=== PATIENT | female | born 1990 | race Caucasian/White ===

== ENCOUNTER 2019-05-25 21:58 | Emergency (ER) | payer OTHER, SELFPAY ==
[2019-05-25] MEDS ORDERED: MORPHINE 4 MG/ML SYR ONE (23:57)
[2019-05-25] MEDS ORDERED: ONDANSETRON 4 MG/2 ML VIAL ONE (23:57)
[2019-05-26] MEDS ORDERED: NA CHLORIDE 0.9% 1,000 ML IV SCH
[2019-05-26 00:57] LABS: Urine Bacteria >50 /HPF (<20); Urine Culture Reflex Order REFLEXED; Urine Mucus 1+ /HPF (NONE SEEN)
[2019-05-26 01:29] LABS: Absolute Lymphocytes (CBC) 2.3 K/uL (0.7-4.9); Basophils % 0.8 % (0-1.3); Hematocrit 39.5 % (36.0-45.0); Lymphocytes % 37.4 % (15.3-44.8); MPV 7.5 fL (7.6-11.3); RBC Red Blood Cell Count 4.38 M/uL (3.86-4.86)
[2019-05-26 01:40] LABS: ALT/SGPT 79 U/L (12-78); AST/SGOT 42 U/L (15-37); Albumin 3.4 g/dL (3.4-5.0); Alkaline Phosphatase 47 U/L (45-117); BUN Blood Urea Nitrogen 7 mg/dL (7-18); Bicarbonate 28 mmol/L (21-32); Bilirubin Direct < 0.1 mg/dL (0-0.2); Bilirubin Total 0.2 mg/dL (0.2-1.0); Glucose Level 91 mg/dL (74-106); Lipase 69 U/L (73-393); Potassium 3.7 mmol/L (3.5-5.1); Protein, Total 7.2 g/dL (6.4-8.2); Sodium Level 141 mmol/L (136-145)
[2019-05-26] MEDS ORDERED: FENTANYL CITR 100 MCG/2 ML ONE (01:52)
[2019-05-26 02:26] LABS: Urine Blood 2+ (NEG); Urine Glucose NEGATIVE (NEG); Urine Protein NEGATIVE (NEG); Urine Specific Gravity 1.025 (1.005-1.030)
[2019-05-26] MEDS ORDERED: ONDANSETRON 4 MG/2 ML VIAL ONE (03:10)
[2019-05-26] MEDS ORDERED: CEFTRIAXONE/SWI 1gm 1 GM/10 ML SYR ONE (03:10)
--- NOTE | 2019-05-26 04:06 | EDPHYS ---
Physician Documentation [facility] Name: Leslie Disla Age: 28 yrs Sex: Female : 1990 Arrival Date: 05/25/2019 Time: 22:01 Bed 8 Private MD: ED Physician Sebastian Cunha HPI: 05/25 01:47 This 28 yrs old Female presents to ER via Ambulatory with complaints of kb Fever, Nausea/Vomiting, Flank Pain. 01:47 The patient presents with abdominal pain right lower quadrant. Onset: The kb symptoms/episode began/occurred 3 day(s) ago. The symptoms do not radiate. Associated signs and symptoms: Pertinent positives: nausea, vomiting, and diarrhea, fever, Pertinent negatives: anorexia, blood in stools, chest pain, constipation, dysuria, headache, hematuria, palpitations, shortness of breath, vaginal discharge, vomiting blood. The symptoms are described as constant. Modifying factors: The symptoms are alleviated by nothing, the symptoms are aggravated by nothing. Severity of pain: At its worst the pain was moderate in the emergency department the pain is unchanged. The patient has not experienced similar symptoms in the past. The patient has not recently seen a physician. Pt reports RLQ pain, n/v/d and low grade fever since Tuesday. Was seen at [facility] on Tuesday and kept for obs, but released without a diagnosis and still having same pain. 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 - Social history:: Smoking status: Patient denies any tobacco usage or history of. ROS: 05/25 01:44 Constitutional: Negative for fever, chills, and weight loss, ENT: Negative for injury, kb pain, and discharge, Neck: Negative for injury, pain, and swelling, Cardiovascular: Negative for chest pain, palpitations, and edema, Respiratory: Negative for shortness of breath, cough, wheezing, and pleuritic chest pain, Back: Negative for injury and pain, MS/Extremity: Negative for injury and deformity, Skin: Negative for injury, rash, and discoloration, Neuro: Negative for headache, weakness, numbness, tingling, and seizure. Abdomen/GI: Positive for abdominal pain, nausea, vomiting, and diarrhea. Exam: 01:43 Constitutional: This is a well developed, well nourished patient who is awake, alert, kb and in no acute distress. Head/Face: Normocephalic, atraumatic. Neck: Trachea midline, no thyromegaly or masses palpated, and no cervical lymphadenopathy. Supple, full range of motion without nuchal rigidity, or vertebral point tenderness. No Meningismus. Chest/axilla: Normal chest wall appearance and motion. Nontender with no deformity. No lesions are appreciated. Cardiovascular: Regular rate and rhythm with a normal S1 and S2. No gallops, murmurs, or rubs. Normal PMI, no JVD. No pulse deficits. Respiratory: Lungs have equal breath sounds bilaterally, clear to auscultation and percussion. No rales, rhonchi or wheezes noted. No increased work of breathing, no retractions or nasal flaring. Back: No spinal tenderness. No costovertebral tenderness. Full range of motion. Skin: Warm, dry with normal turgor. Normal color with no rashes, no lesions, and no evidence of cellulitis. MS/ Extremity: Pulses equal, no cyanosis. Neurovascular intact. Full, normal range of motion. Neuro: Awake and alert, GCS 15, oriented to person, place, time, and situation. Cranial nerves II-XII grossly intact. Motor strength 5/5 in all extremities. Sensory grossly intact. Cerebellar exam normal. Normal gait. 01:43 Abdomen/GI: Inspection: obese Bowel sounds: normal, Palpation: soft, in all quadrants, moderate abdominal tenderness, in the right lower quadrant. Vital Signs: 05/24 22:09 BP 107 / 63; Pulse 104; Resp 20; Temp 98.2; Pulse Ox 96% on R/A; Weight 117.93 kg (R); aj1 Height 5 ft. 2 in. (157.48 cm) (R); Pain 10/10; 05/25 01:40 BP 125 / 88; Pulse 85; Resp 18; Pulse Ox 95% on R/A; ea 04:17 BP 122 / 98; Pulse 80; Resp 18; Pulse Ox 94% ; ah 05/24 22:09 Body Mass Index 47.55 (117.93 kg, 157.48 cm) aj1 MDM: 05/24 23:21 Patient medically screened. kb 05/25 01:43 Data reviewed: vital signs, nurses notes. Data interpreted: Pulse oximetry: on room air kb is 95 %. Interpretation: normal. 03:20 Transition of care: After a detail discussion of the patient's case, care is kb transferred to Sebastian Cunha MD. 05/24 22:08 Order name: Urine Microscopic Only; Complete Time: 00:59 kb 05/24 23:28 Order name: Hepatic Function; Complete Time: 01:42 kb 05/24 23:28 Order name: Basic Metabolic Panel; Complete Time: 01:42 kb 05/24 23:28 Order name: CBC with Diff; Complete Time: 01:42 kb 05/24 23:28 Order name: Lipase; Complete Time: 01:42 kb 05/25 00:59 Order name: Urine Culture EDCA 05/24 23:35 Order name: CT Abd/Pelvis - IV Contrast Only kb 05/25 01:41 Order name: Urine Dipstick--Ancillary (enter results); Complete Time: 02:27 sp 05/25 01:41 Order name: Urine --Ancillary (enter results); Complete Time: 02:27 sp 05/24 22:08 Order name: Urine Test (obtain specimen); Complete Time: 23:46 kb 05/24 22:08 Order name: Urine Dipstick-Ancillary (obtain specimen); Complete Time: 23:45 kb 05/24 23:28 Order name: IV Saline Lock; Complete Time: 00:29 kb 05/24 23:28 Order name: Labs collected and sent; Complete Time: 00:29 kb Administered Medications: 00:27 Drug: Zofran (Ondansetron) 4 mg Route: IVP; Site: right forearm; ea 02:27 Follow up: Response: No adverse reaction ea 00:29 Drug: morphine 4 mg {Note: RASS 1.} Route: IVP; Site: right forearm; ea 01:00 Follow up: Response: No adverse reaction; Pain is decreased; RASS: Alert and Calm (0) ea 00:29 Drug: NS 0.9% 1000 ml Route: IV; Rate: 1000 ml; Site: right forearm; ea 00:30 Drug: NS 0.9% 1000 ml Route: IV; Rate: 1000 ml; Site: right forearm; ea 02:27 Follow up: Response: No adverse reaction; IV Intake: 1000ml ea 02:19 Drug: fentaNYL (PF) 25 mcg Route: IVP; Site: right forearm; ea 03:19 Follow up: Response: No adverse reaction ah 03:08 Drug: Rocephin 1 grams Route: IV; Rate: calculated rate; Site: right antecubital; rv 03:15 Follow up: IV Status: Completed infusion rv 04:27 Follow up: IV Intake: 10ml ah 03:08 Drug: Zofran (Ondansetron) 4 mg Route: IVP; Site: right antecubital; rv 04:19 Follow up: Response: No adverse reaction; Nausea is decreased 04:14 Drug: Bentyl 20 mg Route: PO; ah 04:26 Follow up: Response: Medication administered at discharge. 04:15 Drug: TORadol 30 mg Route: IVP; Site: right antecubital; ah 04:26 Follow up: Response: Medication administered at discharge. Disposition: 06:16 Co-signature as Attending Physician, Sebastian Cunha MD I agree with the assessment and 4 plan of care. Disposition: 05/26/19 04:05 Discharged to Home. Impression: Abdominal tenderness, Nausea with vomiting, unspecified, Urinary tract infection, site not specified. - Condition is Stable. - Discharge Instructions: Nausea and Vomiting, Adult, Urinary Tract Infection, Adult, Abdominal Pain, Adult, [id number]. - Prescriptions for Bentyl 20 mg Oral Tablet - take 1 tablet by ORAL route every 6 hours As needed; 20 tablet. Protonix 40 mg Oral Tablet - take 1 tablet by ORAL route once daily; 30 tablet. Zofran 4 mg Oral Tablet - take 1 tablet by ORAL route every 12 hours As needed; 6 tablet. Macrobid 100 mg Oral Capsule - take 1 capsule by ORAL route every 12 hours for 10 days; 20 capsule. - Medication Reconciliation Form, Thank You Letter, Antibiotic Education, Prescription Opioid Use form. - Follow up: Private Physician; When: Upon discharge from the Emergency Department; Reason: Recheck today's complaints, Continuance of care, Re-evaluation by your physician. Follow up: Mark Saleh MD; When: Upon discharge from the Emergency Department; Reason: Recheck today's complaints, Continuance of care, Re-evaluation by your physician. Follow up: Spenser Waggoner MD; When: Upon discharge from the Emergency Department; Reason: Recheck today's complaints, Continuance of care, Re-evaluation by your physician. Follow up: Vasquez Blank MD; When: Upon discharge from the Emergency Department; Reason: Recheck today's complaints, Continuance of care, Re-evaluation by your physician. - Problem is an ongoing problem. - Symptoms have improved. Signatures: Dispatcher [employer] EDMS Purvi Jaime, BATON TWIRLER-C BATON TWIRLER-Ckb Mary Finnegan RN RN aj1 Nitza Nj RN Sebastian Bernard ea, MD MD tw4 Kee Rashid RN RN rv Harris, Amy, RN RN Corrections: (The following items were deleted from the chart) 04:23 04:05 05/26/2019 04:05 Discharged to Home. Impression: Abdominal tenderness; Nausea tw4 with vomiting, unspecified. Condition is Stable. Forms are Medication Reconciliation Form, Thank You Letter, Antibiotic Education, Prescription Opioid Use. Follow up: Private Physician; When: Upon discharge from the Emergency Department; Reason: Recheck today's complaints, Continuance of care, Re-evaluation by your physician. Follow up: Mark Saleh; When: Upon discharge from the Emergency Department; Reason: Recheck today's complaints, Continuance of care, Re-evaluation by your physician. Follow up: Spenser Waggoner; When: Upon discharge from the Emergency Department; Reason: Recheck today's complaints, Continuance of care, Re-evaluation by your physician. Follow up: Vasquez Blank; When: Upon discharge from the Emergency Department; Reason: Recheck today's complaints, Continuance of care, Re-evaluation by your physician. Problem is an ongoing problem. Symptoms have improved. tw4 04:27 04:23 05/26/2019 04:05 Discharged to Home. Impression: Abdominal tenderness; Nausea ah with vomiting, unspecified; Urinary tract infection, site not specified. Condition is Stable. Discharge Instructions: Nausea and Vomiting, Adult, Abdominal Pain, Adult, [id number]. Prescriptions for Bentyl 20 mg Oral Tablet - take 1 tablet by ORAL route every 6 hours As needed; 20 tablet, Protonix 40 mg Oral Tablet - take 1 tablet by ORAL route once daily; 30 tablet, Zofran 4 mg Oral Tablet - take 1 tablet by ORAL route every 12 hours As needed; 6 tablet. and Forms are Medication Reconciliation Form, Thank You Letter, Antibiotic Education, Prescription Opioid Use. Follow up: Private Physician; When: Upon discharge from the Emergency Department; Reason: Recheck today's complaints, Continuance of care, Re-evaluation by your physician. Follow up: Mark Saleh; When: Upon discharge from the Emergency Department; Reason: Recheck today's complaints, Continuance of care, Re-evaluation by your physician. Follow up: Spenser Waggoner; When: Upon discharge from the Emergency Department; Reason: Recheck today's complaints, Continuance of care, Re-evaluation by your physician. Follow up: Vasquez Blank; When: Upon discharge from the Emergency Department; Reason: Recheck today's complaints, Continuance of care, Re-evaluation by your physician. Problem is an ongoing problem. Symptoms have improved. tw4
--- NOTE | 2019-05-26 04:06 | ER ---
Nurse's Notes [facility] Name: Leslie Disla Age: 28 yrs Sex: Female : 1990 Arrival Date: 05/25/2019 Time: 22:01 Bed 8 Private MD: Diagnosis: Abdominal tenderness;Nausea with vomiting, unspecified;Urinary tract infection, site not specified Presentation: 05/24 22:06 Chief complaint: Patient states: right sided abdominal pain. states that she was seen aj1 in the ER at [facility] Tuesday, she had a CT, they kept her over-night for observation, but didn't find anything wrong, but she is still hurting and she has been vomiting and she was running fever earlier today. Coronavirus screen: The patient has NOT traveled to a country currently being monitored by the CDC within the last 14 days. Ebola Screen: Patient denies travel to an Ebola-affected area in the 21 days before illness onset. Initial Sepsis Screen: Does the patient meet any 2 criteria? HR > 90 bpm. No. Patient's initial sepsis screen is negative. Does the patient have a suspected source of infection? Yes: Acute abdominal pain. Risk Assessment: Do you want to hurt yourself or someone else? Patient reports no desire to harm self or others. 22:06 Method Of Arrival: Ambulatory aj1 22:06 Acuity: INDERJIT 3 aj1 Triage Assessment: 22:09 General: Appears in no apparent distress. uncomfortable, Behavior is calm, cooperative, aj1 appropriate for age. Pain: Complains of pain in abdomen. Neuro: Level of Consciousness is awake, alert, obeys commands. Cardiovascular: Patient's skin is warm and dry. Respiratory: Airway is patent Respiratory effort is even, unlabored, Respiratory pattern is regular, symmetrical. GI: Reports lower abdominal pain, nausea, vomiting. 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 - Social history:: Smoking status: Patient denies any tobacco usage or history of. Screenin/14 01:04 Abuse screen: Denies threats or abuse. Nutritional screening: No deficits noted. ea Tuberculosis screening: No symptoms or risk factors identified. Fall Risk None identified. Assessment: 01:04 General: Appears uncomfortable, Behavior is calm, cooperative, appropriate for age. ea Pain: Complains of pain in abdomen. Neuro: Level of Consciousness is awake, alert, obeys commands, Oriented to person, place, time. Respiratory: Airway is patent Respiratory effort is even, unlabored, Respiratory pattern is regular, symmetrical. GI: Abdomen is non-distended. Derm: Skin is pink, warm \T\ dry. 02:26 Reassessment: Patient and/or family updated on plan of care and expected duration. Pain ea level reassessed. Patient is alert, oriented x 3, equal unlabored respirations, skin warm/dry/pink. Returned from CT. 04:15 Reassessment: Patient appears in no apparent distress at this time. Patient is alert, ah oriented x 3, equal unlabored respirations, skin warm/dry/pink. Pt called nurse to the room and states that she needs to use the restroom and she is having more pain. Notified MD and received orders for toradol and bentyl. Medications given and Pt tolerated well. Vital Signs: 05/24 22:09 BP 107 / 63; Pulse 104; Resp 20; Temp 98.2; Pulse Ox 96% on R/A; Weight 117.93 kg (R); aj1 Height 5 ft. 2 in. (157.48 cm) (R); Pain 10/10; 05/25 01:40 BP 125 / 88; Pulse 85; Resp 18; Pulse Ox 95% on R/A; ea 04:17 BP 122 / 98; Pulse 80; Resp 18; Pulse Ox 94% ; ah 05/24 22:09 Body Mass Index 47.55 (117.93 kg, 157.48 cm) aj1 ED Course: 05/24 22:01 Patient arrived in ED. es 22:08 Purvi [facility]ime [facility]-C [facility] kb 22:08 Sebastian Cunha MD is Attending Physician. kb 22:08 Triage completed. aj1 22:09 Arm band placed on Patient placed in waiting room, Patient notified of wait time. aj1 23:31 Kee Rashid, RN is Primary Nurse. rv 05/25 00:06 Radiology exam delayed due to lab results not completed at this time. (BUN/Creatinine) kw1 test not completed at this time. 00:27 Inserted saline lock: 22 gauge in right forearm, using aseptic technique. ds4 00:29 Urine Microscopic Only Sent. ds4 00:42 Radiology exam delayed due to lab results not completed at this time. (BUN/Creatinine) kw1 test not completed at this time. 00:59 Radiology exam delayed due to lab results not completed at this time. (BUN/Creatinine) kw1 test not completed at this time. 01:05 Patient has correct armband on for positive identification. Bed in low position. Call ea light in reach. 01:28 Radiology exam delayed due to lab results not completed at this time. (BUN/Creatinine) kw1 test not completed at this time. 03:11 CT Abd/Pelvis - IV Contrast Only In Process Unspecified. EDMS 04:05 Mark Saleh MD is Referral Physician. tw4 04:05 Spenser Waggoner MD is Referral Physician. tw4 04:05 Vasquez Blank MD is Referral Physician. tw4 04:20 No provider procedures requiring assistance completed. IV discontinued, intact, ah bleeding controlled, No redness/swelling at site. Pressure dressing applied. Administered Medications: 00:27 Drug: Zofran (Ondansetron) 4 mg Route: IVP; Site: right forearm; ea 02:27 Follow up: Response: No adverse reaction ea 00:29 Drug: morphine 4 mg {Note: RASS 1.} Route: IVP; Site: right forearm; ea 01:00 Follow up: Response: No adverse reaction; Pain is decreased; RASS: Alert and Calm (0) ea 00:29 Drug: NS 0.9% 1000 ml Route: IV; Rate: 1000 ml; Site: right forearm; ea 00:30 Drug: NS 0.9% 1000 ml Route: IV; Rate: 1000 ml; Site: right forearm; ea 02:27 Follow up: Response: No adverse reaction; IV Intake: 1000ml ea 02:19 Drug: fentaNYL (PF) 25 mcg Route: IVP; Site: right forearm; ea 03:19 Follow up: Response: No adverse reaction 03:08 Drug: Rocephin 1 grams Route: IV; Rate: calculated rate; Site: right antecubital; rv 03:15 Follow up: IV Status: Completed infusion rv 04:27 Follow up: IV Intake: 10ml 03:08 Drug: Zofran (Ondansetron) 4 mg Route: IVP; Site: right antecubital; rv 04:19 Follow up: Response: No adverse reaction; Nausea is decreased ah 04:14 Drug: Bentyl 20 mg Route: PO; ah 04:26 Follow up: Response: Medication administered at discharge. ah 04:15 Drug: TORadol 30 mg Route: IVP; Site: right antecubital; ah 04:26 Follow up: Response: Medication administered at discharge. Intake: 02:27 IV: 1000ml; Total: 1000ml. ea 04:27 IV: 10ml; Total: 1010ml. Outcome: 04:05 Discharge ordered by . tw4 04:25 Discharged to home ambulatory. 04:25 Condition: good 04:25 Discharge instructions given to patient, Instructed on discharge instructions, follow up and referral plans. medication usage, Demonstrated understanding of instructions, follow-up care, medications, Prescriptions given X 3. 04:27 Patient left the ED. Signatures: Dispatcher [employer] Purvi Mcmahon, UNIT LEADER-C UNIT LEADER-Ckb Mary Finnegan RN RN Courtney Finch Donovan ds4 Nitza Nj RN RN ea Wilhelm, Kimberly kw1 Sebastian Cunha MD MD tw4 Kee Rashid RN RN rv Harris, Amy, RN RN
[2019-05-26] MEDS ORDERED: DICYCLOMINE HCL 10 MG CAP ONE (04:10)
[2019-05-26] MEDS ORDERED: KETOROLAC 30 MG/ML INJ ONE (04:11)
[2019-05-26 05:04] VITALS: TEMP 98.2
[2019-05-26 05:07] VITALS: BP 122/98; O2SAT 94
--- NOTE | 2019-05-28 11:06 | RAD REPORT ---
EXAM DESCRIPTION: CT - Abdomen Pelvis W Contrast - 05/26/2019 5:29 am CLINICAL HISTORY: The patient is 28 years old and is Female; ABD PAIN TECHNIQUE: Axial computed tomography images of the abdomen and pelvis with intravenous contrast. S agittal and coronal reformatted images were created and reviewed. This CT exam was performed using one or more of the following dose reduction techniques: automated exposure control, adjustment of t he mA and/or kV according to patient size, and/or use of iterative reconstruction technique. COMPARISON: No relevant prior studies available. FINDINGS: LUNG BASES: Unremarkable. No mass. No consolidation. ABDOMEN: LIVER: There is a diffuse decrease in hepatic parenchymal density, consistent with fatty infiltr ation. GALLBLADDER AND BILE DUCTS: No calcified stones. No ductal dilation. PANCREAS: No ductal dilation. No mass. SPLEEN: Unremarkable. ADRENALS: Unremarkable. No mass. KIDNEYS AND URETERS: Left intrarenal calcification is present. The kidneys enhance symmetrically . No obstructing renal or ureteral calculus is seen. There is no hydronephrosis or hydroureter of eit her kidney. STOMACH AND BOWEL: The stomach is decompressed. The small bowel is normal in caliber. Stool is p resent throughout the colon. There is no mucosal thickening or evidence of bowel obstruction. PELVIS: APPENDIX: The appendix is normal in caliber without surrounding inflammation. BLADDER: Unremarkable. No mass. REPRODUCTIVE: Unremarkable as visualized. ABDOMEN and PELVIS: INTRAPERITONEAL SPACE: Unremarkable. No free air. No significant fluid collection. BONES/JOINTS: No acute fracture. SOFT TISSUES: The soft tissues are normal. VASCULATURE: Unremarkable. No abdominal aortic aneurysm. LYMPH NODES: Unremarkable. No enlarged lymph nodes. IMPRESSION: No acute findings on this contrasted CT of the abdomen and pelvis to explain the patient 's symptoms. Electronically signed by: Flor Rust MD 05/26/2019 3:25 AM CDT Due to temporary technical issues with the PACS/Fluency reporting system, reports are being signed by the in house radiologist as a courtesy to ensure prompt reporting. The interpreting radiologist is f ully responsible for the content of the report.
== END 2019-05-26 04:27 | disposition home or self-care (01) ==
LOC: ER 21:58
DX: N39.0 Urinary tract infection, site not specified (principal); R11.2 Nausea with vomiting, unspecified
CPT/HCPCS: 87088; 85025; 87086; 36415; 81025; 81003; 81015; 74177; 96375; 96374; 99284; Q9967; J3010; J0696; J7030; J2405 ×2

== ENCOUNTER 2022-04-04 06:53 | Emergency (ER) | payer OTHER ==
--- OUTSIDE RECORDS SUMMARY | 2022-04-04 06:56 | XMS REPORT | Continuity of Care Document ---
:1990 Author Organization [facility] t Address [address] [place] [address] Dr. [address]. [address] [place] [address] Care Team Providers Name Role Phone Pcp, Patient Does Not Have A Primary Care Physician [id number] Paco Kaiser Attending Clinician PACO BREAUX Attending Clinician Unavailable Doctor Unassigned, [place] Attending Clinician Unavailable NETO BARBOSA Attending Clinician Unavailable Therapy, [facility] Cov[facility] Infusion Attending Clinician Unavailable Neto Barbosa MD Attending Clinician Provider, [facility] Attending Clinician Unavailable Natalia Martinez Attending Clinician Lab, [facility] Fam Pob I Attending Clinician Unavailable Park Giraldo Attending Clinician PARK PIRES Attending Clinician Unavailable DR Laurie COTTRELL Attending Clinician Unavailable DR Laurie COTTRELL Admitting Clinician Unavailable Payers Payer Name Policy Type Policy Number Effective Date Expiration Date [facility] [id number] 2019 2020 PPO/POS 00:00:00 00:00:00 Problems Condition Condition Condition Status Onset Resolution Last Treating Co mments Source Name Details Category Date Date Treatment Clinician Date No known No known Disease Unive rs active active ity of problems problems [facility] Other Other Problem Active 2018-06-24 Memor ia endometrio endometrio 02:45:33 l sis sis Active Sb n Problem 06/24/2018 [facility] Polycystic Problem Active 2018-06-24 M emoria ovarian Polycystic 02:45:33 l syndrome ovarian South syndrome Active Problem 06/24/2018 [facility] Allergies, Adverse Reactions, Alerts Allergy Allergy Status Severity Reaction(s) Onset Inactive Treating Comm ents Source Name Type Date Date Clinician Amoxicil Propensi Active Nausea Univer s elli[place] ty to and/or 09-01 ity of adverse Vomiting 00:00: [place] reaction 00 Medical s Branch AMOXICIL DRUG Active High N/V Univers ELLIOTT INGREDI 09-01 ity of 00:00: [place] 00 Medical Branch NO KNOWN Drug Active Univers ALLERGIE Class ity of [facility] Social History Social Habit Start Date Stop Date Quantity Comments Source Exposure to 2021-07-25 2021-08-04 Not sure [facility] SARS-CoV-2 (event) 00:00:00 09:05:00 Medica l Branch Tobacco use and 2021-08-04 2021-08-04 Never used [facility] exposure 00:00:00 00:00:00 [facility] Sex Assigned At [birth year] [facility] 00:00:00 00:00:00 [facility] Smoking Status Start Date Stop Date Source Never smoker [facility] Unknown if ever smoked [facility] Medications Ordered Filled Start Stop Current Ordering Indication Dosage Frequency Signature Comments Components Source Medication Medication Date Date Medication? Clinician (SIG) Name Name ondansetron 2021- No [id number] 4mg Univers (ZOFRAN-ODT 08-04 ity of ) 15:30: 14:29 [place] disintegrat 00 :00 Medical ing tablet Branch 4 mg ondansetron 2021- No [id number] 4mg 4 mg, Univers (ZOFRAN-ODT 08-04 Oral, ity of ) 15:30: 14:29 ONCE, 1 [place] disintegrat 00 :00 dose, On Medi jaquelin ing tablet Tue Branch 4 mg 08/04/21 at 1030, Routine ketorolac 2021- No [id number] 30mg 30 mg, Univers (TORADOL) 5-24 05-24 Intramuscu ity of injection 15:30: 14:29 lar, ONCE, [place] 30 mg 00 :00 1 dose, On Medical On License Of [facility] Branch 08/04/21 at 1030, Routine ketorolac 2021- No [id number] 30mg Un otis (TORADOL) 08-04 ity of injection 15:30: 14:29 [place] 30 mg 00 :00 Medical Branch tamsulosin 2021- No [id number] .4mg Take 1 Univers (FLOMAX) 08-04 capsule by ity of 0.4 mg 24 00:00: 04:59 mouth [place] hr capsule 00 :00 daily for Medi jaquelin 7 days. Branch tamsulosin 2021- No [id number] .4mg Take 1 Univers (FLOMAX) 08-04 capsule by ity of 0.4 mg 24 00:00: 04:59 mouth [place] hr capsule 00 :00 daily for Medi jaquelin 7 days. Branch ondansetron 2021- No [id number] 4mg Take 1 Univers 4 mg 08-04-30 tablet by ity of disintegrat 00:00: 04:59 [place] tablet 00 :00 every 8 Medica l (eight) Branch hours as needed for Nausea and Vomiting (N/V) for up to 5 days. ondansetron 2021- No [id number] 4mg Take 1 Univers 4 mg -04 08-30 tablet by ity of disintegrat 00:00: 04:59 [place] tablet 00 :00 every 8 Medica l (eight) Branch hours as needed for Nausea and Vomiting (N/V) for up to 5 days. traMADoL 50 2021- No [id number] 50mg Take 1 Uni vers mg tablet 08-04-29 tablet by ity of 00:00: 04:59 mouth [place] 00 :00 every 6 Medical (six) Branch hours for 4 days. Indication s: acute pain traMADoL 50 2021- No [id number] 50mg Take 1 Uni vers mg tablet -04 08-29 tablet by ity of 00:00: 04:59 mouth [place] 00 :00 every 6 Medical (six) Branch hours for 4 days. Indication s: acute pain medroxyPROG 2022-0 Yes 10mg Take 10 mg Univers ESTERone 10 5-17 by mouth ity of mg tablet 00:00: daily. [place] Medical [facility] medroxyPROG 2-0 Yes 10mg Take 10 mg Univers ESTERone 10 5-17 by mouth ity of mg tablet 00:00: daily. [place] [facility] casirivimab 2020- No [id number] 1200mg 1,200 mg, Univers -imdevimab 11-20 Subcutaneo it y of (REGEN-COV 22:00: 20:58 us, ONCE, [place] (EUA)) 00 :00 1 dose, Medical injection Aleta 11/20/20 Bran ch 1,200 mg at 1700, Routine casirivimab 2020- No [id number] 1200mg 1,200 mg, Univers -imdevimab 11-20 Subcutaneo it y of (REGEN-COV 22:00: 20:58 us, ONCE, [place] (EUA)) 00 :00 1 dose, Medical injection Aleta 11/20/20 Bran ch 1,200 mg at 1700, Routine metFORMIN 2020-2021- No 500mg Take 500 Un otis 500 mg 6-21 06-22 mg by ity of tablet 00:00: 04:59 mouth 3 [place] 00 :00 (three) Medical times Branch daily. metFORMIN 2020-2021- No 500mg Take 500 Un otis 500 mg 6-21 06-22 mg by ity of tablet 00:00: 04:59 mouth 3 [place] 00 :00 (three) Medical times Branch daily. metFORMIN 2020-0 202- No 500mg Take 500 Un otis 500 mg 6-21 06-22 mg by ity of tablet 00:00: 04:59 mouth 3 [place] 00 :00 (three) Medical times Branch daily. metFORMIN 2020-0 2022- No 500mg Take 500 Un otis 500 mg 6-21 06-22 mg by ity of tablet 00:00: 04:59 mouth 3 [place] 00 :00 (three) Medical times Branch daily. metFORMIN 2020-0 2- No 500mg Take 500 Un otis 500 mg 6-21 06-22 mg by ity of tablet 00:00: 04:59 mouth 3 [place] 00 :00 (three) Medical times Branch daily. metFORMIN 2021- No 500mg Take 500 Un otis 500 mg 6-21 06-22 mg by ity of tablet 00:00: 04:59 mouth 3 [place] 00 :00 (three) Medical times Branch daily. metFORMIN 2020-2021- No 500mg Take 500 Un otis 500 mg 6-21 06-22 mg by ity of tablet 00:00: 04:59 mouth 3 [place] 00 :00 (three) Medical times Branch daily. metFORMIN 2021- No 500mg Take 500 Un otis 500 mg 6-21 06-22 mg by ity of tablet 00:00: 04:59 mouth 3 [place] 00 :00 (three) Medical times Branch daily. bromphenira 2020- No [id number] 5mL Take 5 mL Univers mine-pseudo 09-01- by mouth 4 i ty of ephedrine-D 00:00: 04:59 (four) [place] as M (BROMFED 00 :00 times Medical DM) 2-30-10 daily as Bran ch mg/5 mL needed for syrup Congestion /Allergies or Cough for up to 10 days. methylPREDN 2020- No [id number] Take by [facility] ISolone 4 09-01-28 mouth ity of mg tablets 00:00: 04:59 SEE-INSTRU [place] 00 :00 CTIONS for Medical 6 days. Branch follow package directions Metformin Yes Anali 1 tablet Mem oria HCl 3-28 Mohit with meals l 00:00: [place] 00 Metformin Yes Anali 1 tablet Mem oria HCl 3-28 Mohit with meals l 00:00: Vital Signs Vital Name Observation Time Observation Value Comments Source Oxygen saturation in 2021-08-04 14:11:00 97 /min [facility] Arterial blood by [facility]xim[facility] Branch Systolic blood 2021-08-04 14:11:00 124 mm[Hg] Univer sity of pressure [facility] Diastolic blood 2021-08-04 14:11:00 81 mm[Hg] Unive rsity of [facility] Heart rate 2021-08-04 14:11:00 63 /min Universi ty of [facility] Body temperature 2021-08-04 14:11:00 37.33 Eve Univ ersity of [place] [facility] Respiratory rate 2021-08-04 14:11:00 16 /min Univ ersity of [facility] Body height 2021-08-04 14:11:00 160 cm Universi ty of [place] [facility] Body weight 2021-08-04 14:11:00 128.822 kg Universi ty of [place] [facility] BMI 2021-08-04 14:11:00 50.31 kg/m2 Universi ty of [facility] Systolic blood 2020-11-20 21:43:00 118 mm[Hg] Univer sity of pressure [place] [facility] Diastolic blood 2020-11-20 21:43:00 76 mm[Hg] Unive rsity of pressure [facility] Heart rate 2020-11-20 21:43:00 96 /min Universi ty of [facility] Body temperature 2020-11-20 21:43:00 36.39 Eve Univ ersity of [facility] Respiratory rate 2020-11-20 21:43:00 22 /min Univ ersity of [facility] Oxygen saturation in 2020-11-20 21:43:00 94 /min [facility] Arterial blood by [facility] Branch Body height 2020-11-20 20:55:00 157.5 cm Universi ty of [place] [facility] Body weight 2020-11-20 20:55:00 117.935 kg Universi ty of [place] [facility] BMI 2020-11-20 20:55:00 47.55 kg/m2 Universi ty of [facility] Systolic blood 2020-09-01 19:12:00 116 mm[Hg] Univer sity of pressure [facility] Branch Diastolic blood 2020-09-01 19:12:00 79 mm[Hg] Unive rsity of pressure [facility] Heart rate 2020-09-01 19:12:00 92 /min Universi ty of [facility] Body temperature 2020-09-01 19:12:00 36.94 Eve Univ ersity of [facility] Branch Respiratory rate 2020-09-01 19:12:00 20 /min Univ ersity of [facility] Body height 2020-09-01 19:12:00 157.5 cm Universi ty of [facility] Body weight 2020-09-01 19:12:00 131.543 [facility] BMI 2020-09-01 19:12:00 53.04 kg/m2 [facility] Oxygen saturation in 2020-09-01 19:12:00 98 /min University [facility] blood by [facility] Branch Procedures Procedure Date / Time Performing Clinician Source Performed XR KUB 2021-08-04 14:35:00 Namita [facility] POCT TEST 2021-08-04 14:22:[facility] 2021-08-04 14:20:00 [facility] ASSIGNMENT OF BENEFITS 2021-08-04 14:05:49 Doctor Unassigned, [facility] [place] [facility] [id number] CONSENT 2020-11-20 05:01:00 Doctor Unassigned, [facility] [place] [facility] Power NO SHOW OR MISSED 2020-09-01 19:07:13 Doctor Unassigned, [facility] APPOINTMENT POLICY [place] Medical [facility] h ACKNOWLEDGEMENT Encounters Start End Encounter Admission Attending Care Care Encounter Source Date/Time Date/Time Type Type Clinicians Facility Department ID 2022-04-04 Outpatient [id number] Memoria 06:56:10 [id number] South [id number] 2021-04-14 Outpatient [id number] Memoria 15:14:10 [id number] South [id number] 2021-08-04 2021-08-04 [facility] [id number] [facility] 09:25:23 23:59:00 Encounter [place] [id number] ity [facility] 4.2.7.2.686 [place] as LALO?BLEA [phone] Md raghu GARCIA [address] MEDICAL OFFICE [facility] 2021-08-04 2021-08-04 Outpatient R NAMITA [facility] [id number] Univers 09:25:23 23:59:00 PACO ity [facility] 2021-08-04 2021-08-[address] [facility] [id number] Univers 09:00:00 09:52:21 Care [facility] [id number] it y of [place] 4.2.7.2.686 [place] as LALO?BLEA [phone] Md raghu GARCIA [address] MEDICAL OFFICE [facility] 2021-08-04 2021-08-04 Orders Doctor DIAZ [id number] Univers 00:00:00 00:00:00 Only Unassigned, TERA [id number] ity of [place] [facility] 4.2.7.2.686 [place] as [phone] [address] 2020-11-20 2020-11-20 Outpatient R DIMA [facility] [id number] Univers 16:00:00 16:00:00 NETO duffy [facility] 2020-11-20 2020-11-20 Nurse Therapy, [facility] [id number] Univers 13:59:56 14:59:56 Visit Neto Barbosa [place] [id number] ity of [place] 4[place]2.7.2.686 [place] [phone] [facility] [address] 2020-11-20 2020-11-20 Orders Doctor DIAZ [id number] Univers 00:00:00 00:00:00 Only Unassigned, TERA [id number] ity of [place] [facility] 4.2.7.2.686 [place] as [phone] [address] 2020-09-01 2020-09-01 Urgent Provider, [facility] [id number] Univers 14:07:46 14:53:18 Care Natalia Donohue [id number] ity of [place] 4.2.7.2.686 [place] as Professio [phone] [facility] [address] 2020-09-01 2020-09-01 Outpatient R [facility] [id number] Univers 14:20:00 14:20:00 ity of [facility] 2020-09-01 2020-09-01 Orders Doctor JOE [id number] Univers 00:00:00 00:00:00 Only Unassigned, TERA [id number] ity of [place] [facility] [id number] [place] as [phone] [address] 2019-09-28 2019-09-28 Laboratory Lab, Adc Fam Pob I [facility] 1.2. [id number] Univers 07:11:45 07:31:45 Only [place] [id number] ity of [place] [id number] [place] as Professio [phone] [facility] [address] 2019-09-28 2019-09-28 Outpatient R LESLI [facility] [id number] Univers 07:20:00 07:20:00 PARK duffy of [facility] 2018-06-23 2018-06-23 Outpatient C Fun[place]o Laurie Grahamo [id number] [facility]inic 12:54:00 12:54:00 Gaby Delarosa MD PhD PA PhD PA 2017-09-08 2017-09-08 Outpatient Laurie ANTHONY [facility] RAD [id number] [place] 12:13:00 23:59:00 FUNSHO [facility] 2017-08-02 2017-08-02 Outpatient C [place] Laurie Rehmansho [id number] [facility]Clinic 09:57:00 09:57:00 Gaby Delarosa MD PhD PA PhD PA 2017-06-08 2017-06-08 Outpatient C Funsho Laurie Funsho [id number] [facility]Clinic 13:45:00 13:45:00 Gaby Delarosa MD PhD PA PhD PA 2017-06-01 2017-06-01 Outpatient C Funsho C Funsho [id number] [facility]Clinic 12:21:00 12:21:00 Gaby Delarosa MD PhD PA PhD PA Results Test Description Test Time Test Comments Results Result Comments Source POCT TEST 2021-08-04 14:25:00 Test Item Value Reference Range Interpretation Comme nts POCT PREG (test code = 1605) Negative On board controls acceptable with C Line (test code = 3574) Yes POCT PREG LOT # (test code = 3575) POCT PREG TEST DATE (test code = 3576) Lab Interpretation (test code = 28871-3) Normal [facility] SPECIFIC [id number] 14:21:00 Test Item Value Reference Range Interpretation Comments POCT U SP GRAV (test 1.020 mg/dl 1.005-1.025 code = 3255) POCT PH U (test code = 6 mg/dl 5-8 3254) POCT U LEUK EST (test neg Negative - code = 3263) Negative POCT U NIT (test code neg Negative - = 3262) Negative POCT U PROT (test code neg Negative - = 3259) Negative POCT U GLU (test code neg Negative - = 3256) Negative POCT U KETONE (test neg Negative - code = 3258) Negative POCT U UROBILI (test neg 0.2-1 code = 3260) POCT U BILI (test code neg Negative - = 3261) Negative POCT U BLD (test code Negative - = 3257) Negative POCT U COLOR (test yellow code = 3266) POCT U APPEAR (test cloudy code = 3267) ORACIO (test code = ORACIO) accurate development and interpretation of all internal controls Lab Interpretation Abnormal (test code = 44158-6) [facility] [id number] 13:05:00Exam: Left breast ultrasoundHistory: Palpable lumpsLocation: [id number]: High resolution color and duplex sonography of all 4 quadrants andretroareolar region of the left breast was performed.Findings:There are no solid or cystic masses identified. No evidence of hypervascularityor abnormal shadowing.Impression:ACR BI-RADS 1, negative.Recommendations: Routine clinical follow-up.WID-U/S BREAST [id number] 13:04:16Exam: Right breast ultrasoundHistory: Palpable lumpsLocation: I7Djxntdube: High resolution color andduplex sonography of all 4 quadrants andretroareolar region of the right breast was performed.Finding s:There are no solid or cystic masses identified. No evidence of hypervascularityor abnormal shadowing.Impression:ACR BI-RADS 1, negative.Recommendations: Routine clinical follow-up.
[2022-04-04] MEDS ORDERED: HYDROCODONE/APAP 10/325 TAB ONE (07:41)
[2022-04-04 07:49] LABS: Absolute Lymphocytes (CBC) 2.6 K/uL (0.7-4.9); Lymphocytes % 34.4 % (15.3-44.8); MCV 86.6 fL (80-100); MPV 6.9 fL (7.6-11.3); RBC Red Blood Cell Count 4.39 M/uL (3.86-4.86)
[2022-04-04 08:05] LABS: Potassium 3.6 mmol/L (3.5-5.1)
[2022-04-04] MEDS ORDERED: ONDANSETRON 4 MG (ODT) TAB ONE (08:06)
[2022-04-04] MEDS ORDERED: MORPHINE 2 MG/ML SYR ONE (09:12)
--- NOTE | 2022-04-04 09:26 | RAD REPORT ---
EXAM DESCRIPTION: US - Transvaginal OB - 04/04/2022 8:39 am CLINICAL HISTORY: recent miscarriage, increased bleeding COMPARISON: No comparisons FINDINGS: The uterus is normal size. Endometrial stripe is thin measuring 8-9 mm with trace fluid. N o retained products. No IUP. The maternal adnexa and ovaries are within normal limits. Normal Doppler blood flow was demonstrated to both ovaries. IMPRESSION: No IUP or retained products seen. Endometrium is thin measuring 8 mm with trace fluid.
--- NOTE | 2022-04-04 09:44 | EDPHYS ---
Physician Documentation [facility] Name: Leslie Su Age: 31 yrs Sex: Female : 1990 Arrival Date: 04/04/2022 Time: 07:04 Bed 6 Private MD: ED Physician Tomy Turner HPI: 04/04 08:26 This 31 yrs old Female presents to ER via Ambulatory with complaints of Vaginal rn Bleeding. 08:26 The patient presents with vaginal bleeding that is moderate, with clots. Onset: The rn symptoms/episode began/occurred 2 week(s) ago. Modifying factors: The symptoms are alleviated by nothing, the symptoms are aggravated by nothing. Associated signs and symptoms: Pertinent positives: cramping, vaginal bleeding, Pertinent negatives: dysuria, fever. Severity of symptoms: At their worst the symptoms were moderate, in the emergency department the symptoms are unchanged. The patient has not experienced similar symptoms in the past. The patient has been recently seen by a physician:. Pt reports had IVF transfer last month, diagnosis with miscarriage 2 weeks ago at 6 weeks gestation, prescribed control pills and has had u/s and evaluation with her OB. Began to bleed heavier last night with clots, but otherwise feels ok, some abd cramping, but no sob/chest pain/syncope. . NIGHT TIME NANNY: 07:39 1, Full Term 0, Premature 0, 1, Living 0 aa5 Historical: - Allergies: 07:17 No Known Allergies; vg1 - Home Meds: 07:17 Vitamin D Oral [Active]; Vitamin Oral [Active]; vg1 - PMHx: 07:17 fatty liver disease; PCOS; vg1 - PSHx: 07:17 D\T\C; IVF; vg1 - Immunization history:: Client reports receiving the 2nd dose of the Covid vaccine. - Social history:: Smoking status: Patient denies any tobacco usage or history of. - Family history:: not pertinent. - Hospitalizations: : No recent hospitalization is reported. ROS: 08:26 Constitutional: Negative for fever, chills, and weight loss, Cardiovascular: Negative rn for chest pain, palpitations, and edema, Respiratory: Negative for shortness of breath, cough, wheezing, and pleuritic chest pain, Abdomen/GI: + lower abd cramping : + vaginal bleeding MS/Extremity: Negative for injury and deformity, Neuro: Negative for headache, weakness, numbness, tingling, and seizure. Exam: 08:26 Constitutional: This is a well developed, well nourished patient who is awake, alert, rn and in no acute distress. Head/Face: Normocephalic, atraumatic. Cardiovascular: Regular rate and rhythm. No pulse deficits. Respiratory: No increased work of breathing, no retractions or nasal flaring. Abdomen/GI: soft, non-tender Skin: Warm, dry Neuro: Awake and alert, GCS 15 Vital Signs: 07:05 BP 129 / 79; Pulse 80; Resp 16; Temp 97.9(O); Pulse Ox 98% on R/A; Weight 122.47 kg; vg1 Height 5 ft. 3 in. (160.02 cm); Pain 10/10; 09:07 BP 138 / 75; Pulse 85; Resp 18; Pulse Ox 98% on R/A; Pain 9/10; ld1 09:55 BP 133 / 75; Pulse 82; Resp 16 S; Pulse Ox 98% on R/A; aa5 07:05 Body Mass Index 47.83 (122.47 kg, 160.02 cm) vg1 MDM: 07:09 Patient medically screened. rn 08:26 Differential diagnosis: complete Ab, retained Ab. Data reviewed: vital signs, nurses rn notes, lab test result(s), and as a result, I will discharge patient. 09:39 Counseling: I had a detailed discussion with the patient and/or guardian regarding: the rn historical points, exam findings, and any diagnostic results supporting the discharge/admit diagnosis, lab results, radiology results, the need for outpatient follow up, to return to the emergency department if symptoms worsen or persist or if there are any questions or concerns that arise at home. Response to treatment: the patient's symptoms have markedly improved after treatment, and as a result, I will discharge patient. Special discussion: I discussed with the patient/guardian in detail that at this point there is no indication for admission to the hospital. It is understood, however, that if the symptoms persist or worsen the patient needs to return immediately for re-evaluation. Based on the history and exam findings, there is no indication for further emergent testing or inpatient evaluation. I discussed with the patient/guardian the need to see the OB Gyne specialist for further evaluation of the symptoms. ED course: Bleeding has subsided since arrival, normal h/h, stable vitals, pain improved, has ride home, will dc home with return precautions and told to f/u with her OB tomorrow given this was IVF.. 04/04 07:29 Order name: Basic Metabolic Panel; Complete Time: 08:06 rn 04/04 07:29 Order name: CBC with Diff; Complete Time: 08:06 rn 04/04 07:29 Order name: Quantitative Hcg; Complete Time: 08:06 rn 04/04 07:29 Order name: US Transvaginal Ob; Complete Time: 09:35 rn 04/04 07:29 Order name: IV Saline Lock; Complete Time: 07:39 rn 04/04 07:29 Order name: Labs collected and sent; Complete Time: 07:39 rn Administered Medications: 07:40 Drug: Erhard (HYDROcodone-acetaminophen) 10 mg-325 mg 1 tabs Route: PO; ld1 08:05 Follow up: Response: Pt c/o nausea, notified. aa5 08:05 Drug: Ondansetron 4 mg Route: PO; aa5 09:00 Follow up: Response: No adverse reaction; Nausea is decreased aa5 09:11 Drug: morphine 2 mg Route: IVP; Infused Over: 4 mins; Site: right antecubital; aa5 09:20 Follow up: Response: No adverse reaction aa5 Disposition Summary: 04/04/22 09:43 Discharge Ordered Location: Home rn Problem: new rn Symptoms: have improved rn Condition: Stable rn Diagnosis - Incomplete spontaneous without complication rn Followup: rn - With: Private Physician - When: As needed - Reason: Recheck today's complaints, Re-evaluation by your physician Discharge Instructions: - Discharge Summary Sheet rn - Miscarriage, [id number] rn - Managing Loss rn Forms: - Medication Reconciliation Form rn - Thank You Letter rn - Antibiotic speech language pathologist prn - Prescription Opioid Use rn - Work release form eb Prescriptions: - Tylenol-Codeine #3 300 mg-30 mg Oral - take 1 tablet by ORAL route every 6-8 hours As needed; 12 tablet; Refills: 0, rn Product Selection Permitted Signatures: Dispatcher [employer] Tomy Rodriguez MD MD rn Calderon, Audri, RN RN aa5 Selena Gr, RN RN vg1 Edelmira Hernandez, RN RN ld1 Corrections: (The following items were deleted from the chart) 08:38 08:26 Constitutional: This is a well developed, well nourished patient who is awake, rn alert, and in no acute distress. Head/Face: Normocephalic, atraumatic. Cardiovascular: Regular rate and rhythm with a normal S1 and S2. No gallops, murmurs, or rubs. Normal PMI, no JVD. No pulse deficits. Respiratory: Lungs have equal breath sounds bilaterally, clear to auscultation and percussion. No rales, rhonchi or wheezes noted. No increased work of breathing, no retractions or nasal flaring. Abdomen/GI: + lower abd cramping Female : + vaginal bleeding MS/ Extremity: Pulses equal, no cyanosis. Neurovascular intact. Full, normal range of motion. Equal circumference. Neuro: Awake and alert, GCS 15, oriented to person, place, time, and situation. Cranial nerves II-XII grossly intact. Motor strength 5/5 in all extremities. Sensory grossly intact. Cerebellar exam normal. Normal gait. rn
--- NOTE | 2022-04-04 09:44 | ER ---
Nurse's Notes [facility] Name: Leslie Su Age: 31 yrs Sex: Female : 1990 Arrival Date: 04/04/2022 Time: 07:04 Bed 6 Private MD: Diagnosis: Incomplete spontaneous without complication Presentation: 04/04 07:05 Chief complaint: Patient states: had a miscarriage on 03/26/22; stated heavy bleeding vg1 began this past week with golf sized clots and was told by PCP if clots became worse to come to ED. Pt states lower ABD stabbing/pulling pain with nausea, and is going through two pads per hour. Coronavirus screen: Vaccine status: Patient reports receiving the 2nd dose of the covid vaccine. Client denies travel out of the [place] in the last 14 days. Ebola Screen: Patient negative for fever greater than or equal to 101.5 degrees Fahrenheit, and additional compatible Ebola Virus Disease symptoms. Initial Sepsis Screen: Does the patient meet any 2 criteria? No. Patient's initial sepsis screen is negative. Does the patient have a suspected source of infection? No. Patient's initial sepsis screen is negative. Risk Assessment: Do you want to hurt yourself or someone else? Patient reports no desire to harm self or others. Onset of symptoms was March 29, 2022. 07:05 Method Of Arrival: Ambulatory vg1 07:05 Acuity: INDERJIT 3 vg1 Triage Assessment: 07:17 General: Appears uncomfortable, Behavior is cooperative, anxious. Pain: Complains of vg1 pain in right lower quadrant and left lower quadrant Pain currently is 10 out of 10 on a pain scale. Quality of pain is described as stabbing, Pain began x 1 week Noted to be grimacing, guarding. Neuro: Level of Consciousness is awake, alert, obeys commands, Oriented to person, place, time, situation. : Reports vaginal bleeding that is bright red, with clots, heavy flow. [facility]: 07:39 1, Full Term 0, Premature 0, 1, Living 0 aa5 Historical: - Allergies: 07:17 No Known Allergies; vg1 - Home Meds: 07:17 Vitamin D Oral [Active]; Vitamin Oral [Active]; vg1 - PMHx: 07:17 fatty liver disease; PCOS; vg1 - PSHx: 07:17 D\\T\\C; IVF; vg1 - Immunization history:: Client reports receiving the 2nd dose of the Covid vaccine. - Social history:: Smoking status: Patient denies any tobacco usage or history of. - Family history:: not pertinent. - Hospitalizations: : No recent hospitalization is reported. Screenin:20 [facility] ED Fall Risk Assessment (Adult) History of falling in the last 3 months, vg1 including since admission No falls in past 3 months (0 pts) Confusion or Disorientation No (0 pts) Intoxicated or Sedated No (0 pts) Impaired Gait No (0 pts) Mobility Assist Device Used No (0 pt) Altered Elimination No (0 pt) Score/Fall Risk Level 0 - 2 = Low Risk Oriented to surroundings, Maintained a safe environment, Educated pt \\T\\ family on fall prevention, incl call for assistance when getting out of bed, Assessed \\T\\ reinforced patient's understanding of fall precautions. Abuse screen: Denies threats or abuse. Denies injuries from another. Nutritional screening: No deficits noted. Tuberculosis screening: No symptoms or risk factors identified. Assessment: 07:25 General: Appears uncomfortable, Behavior is calm, cooperative. Pain: Complains of pain aa5 in right lower quadrant and left lower quadrant Pain currently is 10 out of 10 on a pain scale. Quality of pain is described as crampy, Pain began this morning Is intermittent. Neuro: Level of Consciousness is awake, alert, obeys commands, Oriented to person, place, time, situation. Cardiovascular: Heart tones S1 S2 present Rhythm is regular. Respiratory: Airway is patent Respiratory effort is even, unlabored, Respiratory pattern is regular, symmetrical. GI: Abdomen is obese, Bowel sounds present X 4 quads. Abd is soft X 4 quads Abdomen is tender to palpation in right lower quadrant and left lower quadrant. : Reports vaginal bleeding that is with clots, heavy flow Pt reports vaginal bleeding since 03/22/22 that began as spotting and it became heavy this morning. Pt reports she was seen by [facility] PR[facility] doctor 03/22/22, 03/26/22, and 04/02/22. Pt states "my doctor gave me some control pills to get rid of the lining". EENT: No signs and/or symptoms were reported regarding the EENT system. Derm: Skin is pink, warm \\T\\ dry. Musculoskeletal: Range of motion: intact in all extremities. 08:05 Reassessment: Patient is alert, oriented x 3, equal unlabored respirations, skin aa5 warm/dry/pink. 08:05 Reassessment: US at bedside . aa5 09:00 Reassessment: Patient is alert, oriented x 3, equal unlabored respirations, skin aa5 warm/dry/pink. Currently denies nausea, reports pain has not improved, was notified. . 09:07 Reassessment: No changes from previously documented assessment. Pt c/o abdominal pain. ld1 See [facility] for orders. 09:58 Reassessment: Patient is alert, oriented x 3, equal unlabored respirations, skin aa5 warm/dry/pink. Vital Signs: 07:05 BP 129 / 79; Pulse 80; Resp 16; Temp 97.9(O); Pulse Ox 98% on R/A; Weight 122.47 kg; vg1 Height 5 ft. 3 in. (160.02 cm); Pain 10/10; 09:07 BP 138 / 75; Pulse 85; Resp 18; Pulse Ox 98% on R/A; Pain 9/10; ld1 09:55 BP 133 / 75; Pulse 82; Resp 16 S; Pulse Ox 98% on R/A; aa5 07:05 Body Mass Index 47.83 (122.47 kg, 160.02 cm) vg1 ED Course: 07:04 Patient arrived in ED. [id number] 07:09 Tomy Turner MD is Attending Physician. rn 07:16 Vale Marmolejo, DANNI is Primary Nurse. aa5 07:17 Triage completed. vg1 07:17 Arm band placed on. vg1 07:20 Patient has correct armband on for positive identification. Placed in gown. Bed in low vg1 position. Call light in reach. Side rails up X 1. Pulse ox on. NIBP on. 07:32 Initial lab(s) drawn, by me, sent to lab. Inserted saline lock: 20 gauge in right aa5 antecubital area, using aseptic technique. Blood collected. 07:39 No provider procedures requiring assistance completed. aa5 08:40 US Transvaginal Ob In Process Unspecified. EDMS 09:58 IV discontinued, intact, bleeding controlled, No redness/swelling at site. Pressure aa5 dressing applied. Administered Medications: 07:40 Drug: [place] Weir (HYDROcodone-acetaminophen) 10 mg-325 mg 1 tabs Route: PO; ld1 08:05 Follow up: Response: Pt c/o nausea, notified. aa5 08:05 Drug: Ondansetron 4 mg Route: PO; aa5 09:00 Follow up: Response: No adverse reaction; Nausea is decreased aa5 09:11 Drug: morphine 2 mg Route: IVP; Infused Over: 4 mins; Site: right antecubital; aa5 09:20 Follow up: Response: No adverse reaction aa5 Medication: 07:20 VIS not applicable for this client. vg1 Outcome: 09:43 Discharge ordered by MD. rn 09:58 Discharged to home ambulatory, with friend. aa5 09:58 Condition: stable 09:58 Discharge instructions given to patient, Instructed on discharge instructions, follow up and referral plans. medication usage, Demonstrated understanding of instructions, follow-up care, medications, Prescriptions given X 1. 10:18 Patient left the ED. aa5 Signatures: Dispatcher [employer] EDMS Tomy Turner MD MD rn Calderon, Audri RN RN aa5 Selena Gr RN RN vg1 Edelmira Hernandez RN RN ld1 Alejandra Hu
[2022-04-04 11:35] VITALS: TEMP 97.9; O2SAT 98
[2022-04-04 11:46] VITALS: BP 133/75
== END 2022-04-04 10:18 | disposition home or self-care (01) ==
LOC: ER 06:53
DX: O03.4 Incomplete spontaneous abortion without complication (principal)
CPT/HCPCS: 85025; 80048; 36415; 84702; 76817; 96374; 99284; Q0162; J2270